=== PATIENT | male | born 1960 | race Caucasian/White ===

== ENCOUNTER 2023-10-17 14:55 | Inpatient (IN) | payer MEDICARE, OTHER ==
--- NOTE | 2023-10-17 15:43 | ED ---
Chest Pain HPI - General Chief Complaint: Chest Pain Stated Complaint: Abd Pain Time Seen by Provider: 10/17/23 15:20 Source: EMS, RN notes reviewed Mode of arrival: EMS Limitations: no limitations - History of Present Illness Initial Comments: 63-year-old male with history of hypertension and diabetes presenting to the ER via EMS with a chief complaint of chest pain since this morning with vomiting and diffuse, nonspecific abdominal pain. Patient is altered at time of evaluation and is a poor historian. He endorses current chest pain and abdomina l pain. States he vomited earlier today and admits he is currently very tired. States he lives at home with his nephew. He was treated for UTI 1 week ago and continues to take antibiotics however denies improvement of dysuria. Denies constipation or diarrhea. States he is noncompliant with his blood pressure medications. He states he is compliant with his insulin. Spoke with brother Robert who reports his nephew had some difficulty waking him today and they noticed some mental status changes. Reports he has had a cough for a few days. - Related Data Home Medications Medication Instructions Recorded Confirmed Atorvastatin [Lipitor] 40 mg PO DAILY 08/31/18 11/04/18 Insulin Aspart Prot/Insuln Asp 60 units SQ 1430 08/31/18 11/04/18 [NovoLOG MIX 70-30 Flexpen] Insulin Regular, Human [Novolin R] 10 unit SQ TID PRN 08/31/18 11/04/18 Losartan Potassium 50 mg PO DAILY 08/31/18 11/04/18 Metoprolol Tartrate [Lopressor] 25 mg PO BID 08/31/18 11/04/18 Naproxen Sodium [Naproxen Sodium 500 mg PO DAILY 08/31/18 11/04/18 ER] traMADol HCL [Ultram] 50 mg PO BID 08/31/18 11/04/18 Amoxic-Pot Clav 250-62.5MG/5Ml 5 ml PO TID 11/04/18 11/04/18 [Augmentin 250-62.5 mg/5 ml Susp.] Allergies Allergy/AdvReac Type Severity Reaction Status Date / Time latex Allergy Itching Verified 10/17/23 15:05 Review of Systems ROS Statement: Those systems with pertinent positive or pertinent negative responses have been documented in the HPI. ROS Other: All systems not noted in ROS Statement are negative. EKG Findings - EKG Results: EKG: interpreted by [facility] (EKG reveals sinus tachycardia with first-degree AV block. No ST changes. Ventricular rate 104 bpm, SD interval 226, QRS duration 90, QT/QTc 345/406) Past Medical History Past Medical History: Cancer, Diabetes Mellitus, Hyperlipidemia, Hypertension Additional Past Medical History / Comment(s): CANCER RT EYELID, started on antibiotics yesterday for cat puncture wound on right side of chest History of Any Multi-Drug Resistant Organisms: None Reported Additional Past Surgical History / Comment(s): REMOVAL OF CANCER FROM RT EYELID Past Anesthesia/Blood Transfusion Reactions: No Reported Reaction Past Psychological History: Bipolar Smoking Status: Never smoker Past Alcohol Use History: None Reported Past Drug Use History: None Reported - Past Family History Father Family Medical History: Cancer General Exam Limitations: no limitations General appearance: alert, in no apparent distress Head exam: Present: atraumatic, normocephalic, normal inspection Eye exam: Present: normal appearance, PERRL, EOMI. Absent: scleral icterus, conjunctival injection, periorbital swelling ENT exam: Present: normal exam, mucous membranes moist Neck exam: Present: normal inspection. Absent: tenderness, meningismus, lymphadenopathy Respiratory exam: Present: normal lung sounds bilaterally. Absent: respiratory distress, wheezes, rales, rhonchi, stridor Cardiovascular Exam: Present: regular rate, normal rhythm, normal heart sounds. Absent: systolic murmur, diastolic murmur, rubs, gallop, clicks GI/Abdominal exam: Present: soft, normal bowel sounds. Absent: distended, tenderness, guarding, rebound, rigid Extremities exam: Present: normal inspection, full ROM, normal capillary refill. Absent: tenderness, pedal edema, joint swelling, calf tenderness Back exam: Present: normal inspection Neurological exam: Present: altered, CN II-XII intact Skin exam: Present: warm, dry, intact, normal color. Absent: rash Course Vital Signs 10/17/23 10/17/23 14:57 16:38 Temperature 99 F Pulse Rate 105 H 104 H Respiratory 16 22 Rate Blood Pressure 194/101 162/93 O2 Sat by Pulse 100 94 L Oximetry Chest Pain MDM - MDM Was pt. sent in by a medical professional or institution (, PA, COSMETICS PRESSER, urgent care, hospital, or prison...) When possible be specific @ -No Did you speak to anyone other than the patient for history (EMS, parent, family, police, friend...)? What history was obtained from this source @ -Spoke with patient's brother and sister who supplemented history. Brother Robert reports that his son lives with patient and had a difficult time awakening him this morning and noticed a mental status change which prompted him to call EMS. I spoke with patient's sister at approximately 7 PM where she reported that she suspects patient's nephew who he lives with has been giving him Klonopin and marijuana Gummies which she feels may be causing patient's fatigue. Did you review nursing and triage notes (agree or disagree)? Why? @ -I reviewed and agree with nursing and triage notes Were old charts reviewed (outside hosp., previous admission, EMS record, old EKG, old radiological studies, urgent care reports/EKG's, prison records)? Report findings @ -No old charts were reviewed Differential Diagnosis (chest pain, altered mental status, abdominal pain women, abdominal pain men, vaginal bleeding, weakness, fever, dyspnea, syncope, headache, dizziness, GI bleed, back pain, seizure, CVA, palpatations, mental health, musculoskeletal)? @ -Differential Altered Mental Status: Hypoglycemia, DKA, hypercapnia, ETOH, overdose, CO poisoning, trauma, myxedema coma, HTN encephalopathy, infection, encephalitis, psychosis, intercranial hemorrhage, hepatic encephalopathy, meningitis, CVA, this is not meant to be an all-inclusive list EKG interpreted by me (3pts min.). @ -As above X-rays interpreted by me (1pt min.). @ -Chest x-ray reveals no acute process CT interpreted by me (1pt min.). @ -None done U/S interpreted by me (1pt. min.). @ -None done What testing was considered but not performed or refused? (CT, X-rays, U/S, labs)? Why? @ -None What meds were considered but not given or refused? Why? @ -None Did you discuss the management of the patient with other professionals (professionals i.e. , PA, COSMETICS PRESSER, lab, RT, psych nurse, school social worker, tire retreader, teacher, loans officer, pillowcase maker)? Give summary @ -Discussed case with Yonny Bell from [place] hospitalists who accepted admission at this time due to urinary tract infection with sepsis. Was smoking cessation discussed for >3mins.? @ -No Was critical care preformed (if so, how long)? @ -No Were there social determinants of health that impacted care today? How? (Homelessness, low income, unemployed, alcoholism, drug addiction, transportation, low edu. Level, literacy, decrease access to med. care, longterm, rehab)? @ -No Was there de-escalation of care discussed even if they declined (Discuss DNR or withdrawal of care, Hospice)? DNR status @ -No What co-morbidities impacted this encounter? (DM, HTN, Smoking, COPD, CAD, Cancer, CVA, ARF, Chemo, Hep., AIDS, mental health diagnosis, sleep apnea, morbid obesity)? @ -None Was patient admitted / discharged? Hospital course, mention meds given and route, prescriptions, significant lab abnormalities, going to OR and other pe rtinent info. @ -Patient was admitted. Patient was seen and evaluated for altered mental status x 1 day. Patient was treated for UTI 1 week ago and has been taking antibiotics with no relief of dysuria. Upon initial examination patient was experiencing nonspecific chest and abdominal pain. Patient is tachycardic at 105 bpm, blood pressure is elevated at 194/101. Urine revealed large amount of white blood cells and red blood cells with 2+ protein, 4+ glucose, and 1+ ketones. White blood cell count is 14.7. Patient meets sepsis criteria, identified at 1850, blood cultures were taken and patient was then started on IV fluids and IV Rocephin. Case discussed with Yonny Bell from [facility] hospitalist who accepted admission at this time due to urinary tract infection with sepsis. After speaking with patient's sister on the phone, urine drug screen was also ordered and pending at the time of admission. Undiagnosed new problem with uncertain prognosis? @ -No Drug Therapy requiring intensive monitoring for toxicity (Heparin, Nitro, Insulin, Cardizem)? @ -No Were any procedures done? @ -No Diagnosis/symptom? @ -Urinary tract infection, sepsis Acute, or Chronic, or Acute on Chronic? @ -Acute Uncomplicated (without systemic symptoms) or Complicated (systemic symptoms)? @ -Complicated Side effects of treatment? @ -No Exacerbation, Progression, or Severe Exacerbation? @ -No Poses a threat to life or bodily function? How? (Chest pain, [place], [place], pneumonia, PE, COPD, DKA, ARF, appy, cholecystitis, CVA, Diverticulitis, Homicidal, Suicidal, threat to staff... and all critical care pts) @ -Yes, sepsis Disposition Clinical Impression: Urinary tract infection, Sepsis Disposition: ADMITTED IP TO THIS HOSP Condition: Stable Referrals: Israel Hubbard MD [Primary Care Provider] - 1-2 days Time of Disposition: 19:12
[2023-10-17 15:59] LABS: Basophils % (A) 0 %; Eosinophils % (A) 0 %; HCT 42.6 % (39.0-53.0); HGB 14.4 gm/dL (13.0-17.5); Lymphocytes # (A) 1.5 k/uL (1.0-4.8); Lymphocytes % (A) 10 %; MCH 30.1 pg (25.0-35.0); MCHC 33.9 g/dL (31.0-37.0); MCV 88.8 fL (80.0-100.0); Mean Platelet Volume 7.8; Monocytes # (A) 0.7 k/uL (0-1.0); Monocytes % (A) 5 %; Neutrophils # (A) 12.4 k/uL (1.3-7.7); Neutrophils % (A) 84 %; Platelet Count 237 k/uL (150-450); WBC 14.7 k/uL (3.8-10.6)
[2023-10-17 16:11] LABS: ALT 20 U/L (4-49); AST 22 U/L (17-59); African American GFR (CKD) >90 (>60 ml/min/1.73 sqM); Albumin 3.7 g/dL (3.5-5.0); Alkaline Phosphatase 127 U/L (38-126); Anion Gap 10 mmol/L; Blood Urea Nitrogen 19 mg/dL (9-20); Carbon Dioxide 23 mmol/L (22-30); Chloride 101 mmol/L (98-107); Glucose 202 mg/dL (74-99); Magnesium 1.7 mg/dL (1.6-2.3); Non-African American GFR(CKD) >90 (>60 ml/min/1.73 sqM); Potassium 3.7 mmol/L (3.5-5.1); Sodium 134 mmol/L (137-145); Total Bilirubin 0.6 mg/dL (0.2-1.3); Total Protein 6.5 g/dL (6.3-8.2)
[2023-10-17 16:17] LABS: INR 0.9 (<1.2); Partial Thromboplastin Time 23.6 sec (22.0-30.0); Prothrombin Time 10.2 sec (10.0-12.5)
--- NOTE | 2023-10-17 16:27 | XR ---
EXAMINATION TYPE: XR chest 2V DATE OF EXAM: 10/17/2023 3:57 PM CLINICAL INDICATION:Male, 63 years old with history of Chest Pain; COMPARISON: None TECHNIQUE: XR chest 2V Frontal and lateral views of the chest. FINDINGS: Lungs/Pleura: There is no evidence of pleural effusion, focal consolidation, or pneumothorax. Pulmonary vascularity: Unremarkable. Heart/mediastinum: Cardiomediastinal silhouette is unremarkable. Musculoskeletal: No acute osseous pathology. IMPRESSION: No acute cardiopulmonary disease/process.
[2023-10-17 17:18] LABS: Appearance,Urine Turbid (Clear); Bacteria,Urine Moderate /hpf; Bilirubin,Urine Negative (Negative); Blood,Urine Moderate (Negative); Color,Urine Yellow; Glucose,Urine (UA) 4+ (Negative); Ketones,Urine 1+ (Negative); Leukocyte Esterase,Urine Large (Negative); Mucus,Urine Many /hpf; Nitrite,Urine Negative (Negative); PH, Urine 5.5 (5.0-8.0); Protein,Urine 2+ (Negative); RBC,Urine >182 /hpf (0-5); Squamous Epithelial Cell,Urine 25 /hpf (0-4); Urobilinogen,Urine <2.0 mg/dL (<2.0); WBC,Urine >182 /hpf (0-5)
[2023-10-17] MEDS ORDERED: NALOXONE 0.4 MG/ML 1 ML VIAL IV PRN (19:12)
[2023-10-17] MEDS: SODIUM CHLORIDE 0.9% 1,000 ML IV STA (20:37)
[2023-10-17] MEDS: METOPROLOL SUCCINATE (ER) 50 MG TAB.ER.24H PO STA (20:37)
[2023-10-17 21:07] LABS: Glucose,Whole Blood 142 mg/dL (70-110)
[2023-10-17] MEDS: cefTRIAXone IN SWFI 1,000 MG/10 ML SYRINGE IVP STA (21:11)
[2023-10-17 21:48] LABS: Glucose,Whole Blood 154 mg/dL (70-110)
[2023-10-17] MEDS ORDERED: DEXTROSE 50% SYRINGE 50 ML IVP PRN ×2 (23:02)
[2023-10-17] MEDS ORDERED: ACETAMINOPHEN TAB 325 MG TAB PO PRN (23:05)
[2023-10-17] MEDS ORDERED: traMADol 50 MG TAB PO PRN (23:05)
[2023-10-17] MEDS: ONDANSETRON 4 MG/2 ML VIAL IVP PRN (23:14)
[2023-10-17 23:37] LABS: Amphetamine Screen,Urine Not Detected (NotDetected); Barbiturate Screen,Urine Not Detected (NotDetected); Benzodiazepines Screen,Urine Not Detected (NotDetected); Cocaine Screen,Urine Not Detected (NotDetected); Methadone Screen, Urine Not Detected (NotDetected); Opiate Screen,Urine Not Detected (NotDetected); Oxycodone Screen, Urine Not Detected (NotDetected); Phencyclidine Screen,Urine Not Detected (NotDetected); Tricyclic Antidepressant,Urine Not Detected (NotDetected); Urn Cannabinoid Scrn Detected (NotDetected)
[2023-10-18] MEDS: QUEtiapine 25 MG TAB PO SCH (02:16)
[2023-10-18 07:23] LABS: Glucose,Whole Blood 192 mg/dL (70-110)
[2023-10-18] MEDS: INSULIN ASPART (NovoLOG) 100 UNIT/ML VIAL SQ SCH ×2 (08:59→13:26)
[2023-10-18] MEDS: SODIUM CHLORIDE 0.9% 1,000 ML IV SCH (10:10)
[2023-10-18] MEDS: LOSARTAN 50 MG TAB PO SCH (10:10)
[2023-10-18 12:24] LABS: Glucose,Whole Blood 210 mg/dL (70-110)
[2023-10-18 13:10] LABS: Basophils # (A) 0.1 k/uL (0-0.2); Basophils % (A) 0 %; Eosinophils # (A) 0.2 k/uL (0-0.7); Eosinophils % (A) 2 %; HCT 44.9 % (39.0-53.0); HGB 14.6 gm/dL (13.0-17.5); Lymphocytes # (A) 3.3 k/uL (1.0-4.8); Lymphocytes % (A) 24 %; MCH 29.8 pg (25.0-35.0); MCHC 32.6 g/dL (31.0-37.0); MCV 91.3 fL (80.0-100.0); Mean Platelet Volume 7.7; Monocytes # (A) 0.8 k/uL (0-1.0); Monocytes % (A) 6 %; Neutrophils # (A) 9.2 k/uL (1.3-7.7); Neutrophils % (A) 67 %; Platelet Count 266 k/uL (150-450); RBC 4.92 m/uL (4.30-5.90); RDW 14.2 % (11.5-15.5); WBC 13.7 k/uL (3.8-10.6)
[2023-10-18 13:47] LABS: African American GFR (CKD) >90 (>60 ml/min/1.73 sqM); Anion Gap 8 mmol/L; Blood Urea Nitrogen 16 mg/dL (9-20); Carbon Dioxide 27 mmol/L (22-30); Chloride 103 mmol/L (98-107); Glucose 202 mg/dL (74-99); Non-African American GFR(CKD) >90 (>60 ml/min/1.73 sqM); Potassium 3.9 mmol/L (3.5-5.1); Sodium 138 mmol/L (137-145)
[2023-10-18] MEDS: HEPARIN SODIUM,PORCINE 5,000 UNIT/ML 1 ML VIAL SQ SCH (15:32)
[2023-10-18 17:09] LABS: Glucose,Whole Blood 72 mg/dL (70-110)
[2023-10-18 20:09] LABS: Glucose,Whole Blood 199 mg/dL (70-110)
[2023-10-18] MEDS: INSULIN DETEMIR (LEVEMIR) 100 UNIT/ML SYR SQ SCH (20:22)
[2023-10-18] MEDS: METOPROLOL TARTRATE 25 MG TAB PO SCH (20:22)
--- NOTE | 2023-10-18 23:00 | P.HPIM ---
History of Present Illness H&P Date: 10/18/23 Chief Complaint: Abdominal pain Patient is a 63-year-old male with a past medical history of diabetes type 2 insulin-dependent, hypertension, hyperlipidemia, history of cancer lower right eyelid status post removal, bipolar disorder was brought to the hospital due to complaints of chest pain, abdominal pain, associated nausea vomiting. Patient states that he started having abdominal pain mainly in the lower and mid abdomen and had episode of vomiting. Patient felt very tired. Patient was also confused. He lives with his nephew. As per his nephew has some difficulty waking up and mentation was altered as well. He was treated for urinary tract infection about a week ago and continues to take antibiotics however denies improvement dysuria. Denies any constipation. Patient states that he has been taking his insulin regimen at home. He takes insulin 70/30 60 units daily. On admission patient is afebrile. Heart rate 105 respirations 16 and blood pressure 194/101 and pulse ox 100% on room air. Chest x-ray showed no acute cardiopulmonary process plus disease. EKG showed sinus tachycardia with first-degree AV block Laboratory pressure WBC 14.7 hemoglobin 14.4 and platelets 237 Sodium 134 potassium 3.7 chloride 101 bicarbonate 23 BUN 19 and creatinine 0.88 and blood sugar 202, magnesium 1.7 and alk phos 127 AST ALT within normal limits, troponin less than 0.012 Urinalysis showed 2+ protein 4+ glucose 1+ ketones and large leukocyte esterase with elevated RBCs and WBCs. UDS positive for marijuana Influenza AB RSV COVID-19 PCR not detected. Review of Systems Constitutional: Patient denies any fever or chills . No generalized weakness or weight loss. Abdomen: Patient denied nausea vomiting and diarrhea and abdominal pain. Cardiovascular: Patient denies any chest pain or short of breath no palpitations. Respiratory: patient denied any cough is from production. No shortness of breath Neurologic: Patient denied any numbness or tingling headache. Musculoskeletal: Patient denies any complaints of joint swelling or deformity. Skin: Negative Psychiatric: Negative Endocrine: No heat or cold intolerance. No recent weight gain. Genitourinary: No dysuria or hematuria. All other 14 point ROS negative except the above Past Medical History Past Medical History: Cancer, Diabetes Mellitus, Hyperlipidemia, Hypertension Additional Past Medical History / Comment(s): CANCER RT EYELID, started on antibiotics yesterday for cat puncture wound on right side of chest History of Any Multi-Drug Resistant Organisms: None Reported Additional Past Surgical History / Comment(s): REMOVAL OF CANCER FROM RT EYELID Past Anesthesia/Blood Transfusion Reactions: No Reported Reaction Past Psychological History: Bipolar Additional Psychological History / Comment(s): NOT ON ANY RX Smoking Status: Never smoker Past Alcohol Use History: None Reported Past Drug Use History: None Reported - Past Family History Father Family Medical History: Cancer Medications and Allergies Home Medications Medication Instructions Recorded Confirmed Type Losartan Potassium 50 mg PO DAILY 08/31/18 10/18/23 History Naproxen Sodium [Naproxen Sodium 500 mg PO Q12H PRN 08/31/18 10/18/23 History ER] traMADol HCL [Ultram] 100 mg PO DAILY 08/31/18 10/18/23 History Aspirin EC [Ecotrin Low Dose] 81 mg PO DAILY 10/18/23 10/18/23 History Gabapentin 300 mg PO TID 10/18/23 10/18/23 History Insulin NPH Hum/Reg Insulin Hm 60 unit SQ DAILY 10/18/23 10/18/23 History [NovoLIN 70-30 100 Unit/ml Vial] Metoprolol Succinate (ER) [Toprol 100 mg PO DAILY 10/18/23 10/18/23 History Xl] Tamsulosin [Flomax] 0.4 mg PO DAILY 10/18/23 10/18/23 History Allergies Allergy/AdvReac Type Severity Reaction Status Date / Time latex Allergy Itching Verified 10/18/23 15:05 Physical Exam Vitals: Vital Signs Temp Pulse Pulse Resp BP BP Pulse Ox 10/18/23 08:00 98 F 83 17 133/88 98 10/18/23 01:55 98.7 F 96 20 167/90 98 10/17/23 21:42 98.1 F 95 20 167/100 99 10/17/23 20:00 106 H 22 173/106 99 10/17/23 16:38 104 H 22 162/93 94 L 10/17/23 14:57 99 F 105 H 16 194/101 100 Intake and Output 10/17/23 10/18/23 10/18/23 22:59 06:59 14:59 Other: Voiding Method Toilet # Voids 1 Weight 72.575 kg PHYSICAL EXAMINATION: Patient is lying in the bed comfortably, no acute distress, awake alert and oriented.. HEENT: Normocephalic. Neck is supple. Pupils reactive. Nostrils clear. Oral cavity is moist. Neck reveals no JVD, carotid bruits, or thyromegaly. CHEST EXAMINATION: Trachea is central. Symmetrical expansion. Lung bailey clear to auscultation and percussion. CARDIAC: Normal S1, S2 with no gallops. No murmurs ABDOMEN: Soft. Bowel sounds normal. No organomegaly. No abdominal bruits. Extremities: reveal no edema. No clubbing or cyanosis Neurologically awake, alert, oriented x 2-3 with well-coordinated movements. No gross focal deficits noted Skin: No rash or skin lesions. Psychiatric: Coperative. Nonsuicidal Musculoskeletal: No joint swelling or deformity. Normal range of motion. Results CBC & Chem 7: 10/18/23 12:44 10/18/23 12:44 Labs: Abnormal Lab Results - Last 24 Hours (Table) 10/17/23 10/17/23 10/17/23 Range/Units 15:42 15:42 15:42 WBC 14.7 H (3.8-10.6) k/uL Neutrophils # 12.4 H (1.3-7.7) k/uL Sodium 134 L (137-145) mmol/L Glucose 202 H (74-99) mg/dL POC Glucose (mg/dL) (70-110) mg/dL Hemoglobin A1c (<=6.0) % Alkaline Phosphatase 127 H (38-126) U/L Urine Protein 2+ H (Negative) Urine Glucose (UA) 4+ H (Negative) Urine Ketones 1+ H (Negative) Urine Blood Moderate H (Negative) Ur Leukocyte Esterase Large H (Negative) Urine RBC >182 H (0-5) /hpf Urine WBC >182 H (0-5) /hpf Ur Squamous Epith Cells 25 H (0-4) /hpf Urine Bacteria Moderate H (None) /hpf Urine Mucus Many H (None) /hpf U Marijuana (THC) Screen (NotDetected) 10/17/23 10/17/23 10/17/23 Range/Units 21:05 21:34 23:02 WBC (3.8-10.6) k/uL Neutrophils # (1.3-7.7) k/uL Sodium (137-145) mmol/L Glucose (74-99) mg/dL POC Glucose (mg/dL) 142 H 154 H (70-110) mg/dL Hemoglobin A1c (<=6.0) % Alkaline Phosphatase (38-126) U/L Urine Protein (Negative) Urine Glucose (UA) (Negative) Urine Ketones (Negative) Urine Blood (Negative) Ur Leukocyte Esterase (Negative) Urine RBC (0-5) /hpf Urine WBC (0-5) /hpf Ur Squamous Epith Cells (0-4) /hpf Urine Bacteria (None) /hpf Urine Mucus (None) /hpf U Marijuana (THC) Screen Detected H (NotDetected) 10/18/23 10/18/23 Range/Units 03:53 07:22 WBC (3.8-10.6) k/uL Neutrophils # (1.3-7.7) k/uL Sodium (137-145) mmol/L Glucose (74-99) mg/dL POC Glucose (mg/dL) 192 H (70-110) mg/dL Hemoglobin A1c 11.4 H (<=6.0) % Alkaline Phosphatase (38-126) U/L Urine Protein (Negative) Urine Glucose (UA) (Negative) Urine Ketones (Negative) Urine Blood (Negative) Ur Leukocyte Esterase (Negative) Urine RBC (0-5) /hpf Urine WBC (0-5) /hpf Ur Squamous Epith Cells (0-4) /hpf Urine Bacteria (None) /hpf Urine Mucus (None) /hpf U Marijuana (THC) Screen (NotDetected) Thrombosis Risk Factor Assmnt - DVT/VTE Prophylaxis DVT/VTE Prophylaxis: Pharmacologic Prophylaxis ordered - Choose All That Apply Any of the Below Risk Factors Present?: No Assessment and Plan Assessment: Acute urinary tract infection failed outpatient antibiotic therapy Sepsis secondary to above. Patient was tachycardic and has leukocytosis. Diffuse abdominal pain and epigastric pain and also complains of dysuria on admission. Altered mental status due to toxic metabolic encephalopathy. Improved now Hyperglycemia with uncontrolled diabetes type 2 insulin-dependent. A1c 11 Hypertension uncontrolled on admission Hyperlipidemia Diabetes type 2 insulin-dependent Bipolar disorder DVT prophylaxis heparin subcu Plan: Patient will be continued on IV hydration with normal saline. Bladder scan for any urinary retention. Patient was started on insulin regimen and titrate dose. And started back on home blood pressure medication including metoprolol and losartan. Continue with statins. Continue GI and DVT prophylaxis. Follow-up urine culture report. Time with Patient: Greater than 30
[2023-10-19 07:51] LABS: Glucose,Whole Blood 109 mg/dL (70-110)
[2023-10-19] MEDS: ATORVASTATIN 40 MG TAB PO SCH (08:29)
[2023-10-19] MEDS: FAMOTIDINE 20 MG TAB PO SCH (08:29)
[2023-10-19 09:07] VITALS: TEMP 97.8
[2023-10-19 10:26] LABS: Basophils # (A) 0.06 X 10*3/uL (0.00-0.10); Basophils % (A) 0.5 %; Eosinophils # (A) 0.27 X 10*3/uL (0.04-0.35); Eosinophils % (A) 2.1 %; HCT 40.7 % (39.6-50.0); HGB 13.3 g/dL (13.0-17.0); Lymphocytes % (A) 38.1 %; MCH 29.6 pg (27.0-32.0); MCHC 32.7 g/dL (32.0-37.0); MCV 90.4 FL (80.0-97.0); Mean Platelet Volume 9.9 FL (9.5-12.2); Monocytes # (A) 0.86 X 10*3/uL (0.20-1.00); Monocytes % (A) 6.7 %; NRBC Per 100 WBC 0 X 10*3/uL (0.00-0.01); Neutrophils # (A) 6.73 X 10*3/uL (1.80-7.70); Neutrophils % (A) 52.2 %; Platelet Count 252 X 10*3/uL (140-440); RDW 13.6 % (11.5-14.5); WBC 12.87 X 10*3/uL (4.50-10.00)
[2023-10-19 10:54] LABS: Blood Urea Nitrogen 13.5 mg/dL (9.0-27.0); Calcium 9.6 mg/dL (8.7-10.3); Carbon Dioxide 25.6 mmol/L (21.6-31.8); Chloride 104 mmol/L (96-109); Glucose 107 mg/dL (70-110); Potassium 3.8 mmol/L (3.5-5.5); Sodium 143 mmol/L (135-145)
[2023-10-19 12:22] VITALS: BMI 25.8
[2023-10-19 12:30] LABS: Glucose,Whole Blood 228 mg/dL (70-110)
[2023-10-19 13:23] VITALS: BP 162/96; PULSE 64; RESP 16
== END 2023-10-19 18:07 | disposition home or self-care (01) | DRG 871 ==
LOC: EC 14:55 → 5NMEDONC 20:53
PROVIDERS: ADMIT Internal Medicine; ATTEND Internal Medicine
DX: A41.9 Sepsis, unspecified organism (principal); G92.8 Other toxic encephalopathy; N39.0 Urinary tract infection, site not specified; S21.131A Puncture wound without foreign body of right front wall of thorax without penetration into thoracic cavity, initial encounter; F31.9 Bipolar disorder, unspecified; E78.5 Hyperlipidemia, unspecified; I10 Essential (primary) hypertension; E11.65 Type 2 diabetes mellitus with hyperglycemia; W55.01XA Bitten by cat, initial encounter; Z71.3 Dietary counseling and surveillance; Z85.828 Personal history of other malignant neoplasm of skin; T46.5X6A Underdosing of other antihypertensive drugs, initial encounter; Z91.128 Patient's intentional underdosing of medication regimen for other reason; Z11.52 Encounter for screening for COVID-19; I44.0 Atrioventricular block, first degree; Z91.040 Latex allergy status; Z79.82 Long term (current) use of aspirin; Z79.4 Long term (current) use of insulin; Z79.899 Other long term (current) drug therapy
CPT/HCPCS: 36415; 71046; 80048; 80053; 80306; 81001; 83036; 83735; 84443; 84484; 85025; 85610; 85730; 87040; 87086; 87636; 93005; 96374; 99285

== ENCOUNTER 2023-10-20 21:40 | Emergency (ER) | payer MEDICARE, OTHER ==
[2023-10-20 21:48] LABS: Glucose,Whole Blood 217 mg/dL (70-110)
--- NOTE | 2023-10-20 22:21 | ED ---
General Adult HPI - General Chief complaint: Cardiac Arrest/CPR Stated complaint: Cardiac Arrest Time Seen by Provider: 10/20/23 21:41 Source: patient, EMS, RN notes reviewed, old records reviewed - History of Present Illness Initial comments: Patient is a 63-year-old male who presents emergency department as an [id number] cardiac arrest with return of spontaneous circulation. EMS was called as the patient was found unresponsive. Was pulseless. Sugar was low at the scene. They performed a total of 35 minutes of CPR, having the patient received multiple epinephrines with a total of 6 1 amp of D50, 1 atropine. They obtained ROSC after this time. Initially they were going to call time of but patient spontaneously improved. Patient was bradycardic when the did have pulses. They paced him. Brought him to the emergency department for further evaluation. He was already intubated. Total downtime out of hospital was approximately 35 minutes with EMS. Unknown prior to that. Last seen approximately 1 hour prior to EMS arrival. Patient was recently here and admitted for a UTI and sepsis secondary to failed outpatient antibiotic therapy. He was admitted on October 16. Apparently signed out AGAINST MEDICAL ADVICE on October 19, 2023. Upon arrival to the emergency department, patient was placed on the monitor, and patient had no palpable pulses. CPR was restarted. ACLS protocol was followed. Based on medical record, patient has a history of diabetes, hypertension, hyperlipidemia. - Related Data Home Medications Medication Instructions Recorded Confirmed Losartan Potassium 50 mg PO DAILY 08/31/18 10/18/23 Naproxen Sodium [Naproxen Sodium 500 mg PO Q12H PRN 08/31/18 10/18/23 ER] traMADol HCL [Ultram] 100 mg PO DAILY 08/31/18 10/18/23 Aspirin EC [Ecotrin Low Dose] 81 mg PO DAILY 10/18/23 10/18/23 Gabapentin 300 mg PO TID 10/18/23 10/18/23 Metoprolol Succinate (ER) [Toprol 100 mg PO DAILY 10/18/23 10/18/23 XL] Tamsulosin [Flomax] 0.4 mg PO DAILY 10/18/23 10/18/23 Previous Rx's Medication Instructions Recorded INSULIN ASPART (NovoLOG) [NovoLOG 6 unit SQ AC-TID 30 Days #1 each 10/19/23 (formulary)] Insulin Detemir (Levemir) [Levemir] 18 unit SQ HS 30 Days #1 each 10/19/23 cefUROXime axetiL [Ceftin] 500 mg PO BID 3 Days #6 tab 10/19/23 Allergies Allergy/AdvReac Type Severity Reaction Status Date / Time latex Allergy Itching Verified 10/18/23 15:05 Review of Systems ROS Statement: Those systems with pertinent positive or pertinent negative responses have been documented in the HPI. ROS Other: All systems not noted in ROS Statement are negative. Past Medical History Past Medical History: Cancer, Diabetes Mellitus, Hyperlipidemia, Hypertension Additional Past Medical History / Comment(s): CANCER RT EYELID, started on antibiotics yesterday for cat puncture wound on right side of chest History of Any Multi-Drug Resistant Organisms: None Reported Additional Past Surgical History / Comment(s): REMOVAL OF CANCER FROM RT EYELID Past Anesthesia/Blood Transfusion Reactions: No Reported Reaction Past Psychological History: Bipolar Smoking Status: Never smoker Past Alcohol Use History: None Reported Past Drug Use History: None Reported - Past Family History Father Family Medical History: Cancer General Exam - General Exam Comments Initial Comments: General: Mottled skin. Unresponsive. HEAD: Normal with no signs of head trauma. EYES: Pupils are approximately 3 mm, and fixed. ENT: ET tube in place. Trachea midline. RESPIRATORY: Patient is intubated. C/V: Pulseless ABD: Nondistended EXT: Mottled extremities SKIN: Mottled skin NEURO: Unresponsive Course Vital Signs 10/20/23 21:41 Blood Pressure 112/34 Medical Decision Making - Medical Decision Making Was pt. sent in by a medical professional or institution (Dr. PA, TAB MACHINE OPERATOR, urgent care, hospital, or long term...) When possible be specific @ -No Did you speak to anyone other than the patient for history (EMS, parent, family, police, friend...)? What history was obtained from this source @ -EMS provided details about out of hospital arrest. Was found unresponsive and pulseless. Total downtime of 35 minutes. There were about call time of when they obtained return of spontaneous circulation. Retained a total of 6 epinephrines, 1 of atropine. Was intubated in the field. Given D50 as patient was hypoglycemic initially. Brought to the emergency department for further evaluation. Twelve-lead in the field apparently showed diffuse ST segment elevation postarrest EKG. Did you review nursing and triage notes (agree or disagree)? Why? @ -I reviewed and agree with nursing and triage notes Were old charts reviewed (outside hosp., previous admission, EMS record, old EKG, old radiological studies, urgent care reports/EKG's, long term records)? Report findings @ -Old charts from recent admission on October 16 were reviewed when patient was admitted for UTI and sepsis. Differential Diagnosis (chest pain, altered mental status, abdominal pain women, abdominal pain men, vaginal bleeding, weakness, fever, dyspnea, syncope, headache, dizziness, GI bleed, back pain, seizure, CVA, palpatations, mental health, musculoskeletal)? @ -Cardiac arrest, infection, unresponsive, hypoglycemia, this list is not all inclusive. EKG interpreted by me (3pts min.). @ -None done X-rays interpreted by me (1pt min.). @ -None done CT interpreted by me (1pt min.). @ -None done U/S interpreted by me (1pt. min.). @ -None done What testing was considered but not performed or refused? (CT, X-rays, U/S, labs)? Why? @ -None What meds were considered but not given or refused? Why? @ -None Did you discuss the management of the patient with other professionals (professionals i.e. , PA, TAB MACHINE OPERATOR, lab, RT, psych nurse, social and human services assistant, job interviewer, teacher, production officer, corrections caseworker)? Give summary @ -I contacted the on-call physician for Dr. Hubbard's group, Dr. Francis who expressed understanding will notify Dr. Hubbard in the morning. Was smoking cessation discussed for >3mins.? @ -No Was critical care preformed (if so, how long)? @ -Yes, 30 minutes Were there social determinants of health that impacted care today? How? (Homelessness, low income, unemployed, alcoholism, drug addiction, transportation, low edu. Level, literacy, decrease access to med. care, senior care, rehab)? @ -No Was there de-escalation of care discussed even if they declined (Discuss DNR or withdrawal of care, Hospice)? DNR status @ -No What co-morbidities impacted this encounter? (DM, HTN, Smoking, COPD, CAD, Cancer, CVA, ARF, Chemo, Hep., AIDS, mental health diagnosis, sleep apnea, morbid obesity)? @ -Recent UTI and sepsis Was patient admitted / discharged? Hospital course, mention meds given and route, prescriptions, significant lab abnormalities, going to OR and other pertinent info. @ -Based on the patient's presentation and physical exam, presents to the emergency department status post ROSC following cardiac arrest. Upon arrival in trauma bay 1, it was found patient was once again pulseless. CPR was immediately restarted. ACLS protocol was followed. Patient received [id number] a total of 6 A of epinephrine, 1 of atropine, and was intubated in the field. Total downtime out of hospital was 35 minutes. Rhythm was PEA throughout arrest out of hospital. Total downtime in the emergency department was 15 to 16 minutes. Patient received an additional 3 epinephrine, 2 amps of bicarb, 1amp of calcium, 1 amp of D50. Patient did enter ventricular fibrillation during the arrest and was defibrillated a total of 3 times. Patient received 300 mg of amiodarone followed by 150 mg. Patient then entered PEA again. After extended out of hospital arrest time, as well as extended in-hospital arrest time, we were unsuccessful in obtaining ROSC. At this time after discussion with the resuscitation team, decision was made to terminate resuscitation. Time of 2157. I did update patient's brother Robert, and stepdaughter. Expressed understanding. They informed me that patient did follow-up with Dr. Hubbard. I will attempt to reach Dr. Hubbard.I contacted the on-call physician for Dr. Hubbard's group, Dr. Francis who expressed understanding will notify Dr. Hubbard in the morning. Patient was cleared by the certified medical records coder. polygraph examiner number is [id number]. Undiagnosed new problem with uncertain prognosis? @ -No Drug Therapy requiring intensive monitoring for toxicity (Heparin, Nitro, Insulin, Cardizem)? @ -No Were any procedures done? @ -No Diagnosis/symptom? @ -Cardiopulmonary arrest Acute, or Chronic, or Acute on Chronic? @ -Acute Uncomplicated (without systemic symptoms) or Complicated (systemic symptoms)? @ -Complicated Side effects of treatment? @ -No Exacerbation, Progression, or Severe Exacerbation? @ -No Poses a threat to life or bodily function? How? (Chest pain, [place], NM, pneumonia, PE, COPD, DKA, ARF, appy, cholecystitis, CVA, Diverticulitis, Homicidal, Suicidal, threat to staff... and all critical care pts) @ -Resulted in - Lab Data Lab Results 10/20/23 Range/Units 21:46 POC Glucose (mg/dL) 217 H (70-110) mg/dL POC Glu Clipper And Turner ID [email or web address] Critical Care Time Critical Care Time: Yes Total Critical Care Time: 30 Disposition Clinical Impression: Cardiac arrest Disposition: Referrals: None,Stated [Primary Care Provider] - 1-2 days Time of Disposition: 21:58 Preliminary Cause of : Cardiac arrest, likely related to recent UTI and sepsis.
[2023-10-20 22:32] VITALS: BP 112/34
== END 2023-10-21 01:06 | disposition expired ==
LOC: EC 21:40
DX: I46.9 Cardiac arrest, cause unspecified (principal); N39.0 Urinary tract infection, site not specified; A41.9 Sepsis, unspecified organism; Z91.040 Latex allergy status
CPT/HCPCS: 36415; 92950; 99291